=== PATIENT | male | born 1990 | race Caucasian/White ===

== ENCOUNTER 2024-06-02 11:43 | Day surgery (SDC) | payer BC, SELFPAY ==
[2024-06-01 13:47] VITALS: BMI 30.8
[2024-06-02 12:06] VITALS: BP 130/82; PULSE 71; RESP 17; TEMP 36.2; O2SAT 95
[2024-06-02] MEDS: LACTATED RINGERS 1000ML 1,000 ML 25 ML IV (12:16)
--- NOTE | 2024-06-02 12:36 | EXP.ANES.CKL ---
[facility] Disclaimer: The information contained in this section may have been updated after the patient was seen, as this information can be updated by other users. Medical History No significant active problems Vasectomy planned Surgical History History of esophagogastroduodenoscopy (EGD) History of colonoscopy Family History (Updated 06/02/24 @ 12:05 by Yessi Mcclure RN) Grandmother Family history of cancer Grandfather Family history of myocardial infarction Social History Smoking Status: Never smoker alcohol intake: never substance use type: other current occupational status: employed Travel in the last 8 weeks: None household members: significant other housing: house current occupational exposures/hazards: No caffeine: Yes [facility] Anesthesia Checklist Patient Identification Patient Identification: Verbal (Name & ) Structural Data Admitted From: Home Planned Operative Procedure/s: egd Consent for Planned Operative Procedure(s) Verified: Yes NPO Status Verified Time NPO: 00:00 Additional verifications Anesthesia Reactions: No Hx Blood Transfusions: No Blood Transfusion Reaction: No Airway Assessment Mallampati Score:: Class II C-Spine Mobility Assessed: Yes TMJ Mobility Assessed: Yes Dentition: Good Dentition Neurological Assessment Level of Consciousness: Awake, Alert and Appropriate Anesthesia Plan Anesthesia Risk discussed: Yes Anesthesia Plan: Verified ASA Class: II Anesthesia Type: MAC
--- NOTE | 2024-06-02 13:32 | P.HP_ITS ---
History of Present Illness *Admission Date: 06/02/24 *Reason for visit:: Dysphagia *History of present illness: Mr. Bernal is a 34-year-old gentleman with dysphagia and former Schatzki's ring dilated. His last dilation was 2 to 3 years ago in [place]. He is here for diagnostic/therapeutic upper endoscopy with dilation. The examination is deemed medically necessary for EGD. The patient has been seen, interviewed and examined prior to the procedure by both myself and the anesthesia provider. [facility] Disclaimer: The information contained in this section may have been updated after the patient was seen, as this information can be updated by other users. Medical History No significant active problems Vasectomy planned Surgical History History of esophagogastroduodenoscopy (EGD) History of colonoscopy Family History (Updated 06/02/24 @ 12:05 by Yessi Mcclure RN) Grandmother Family history of cancer Grandfather Family history of myocardial infarction Social History Smoking Status: Never smoker alcohol intake: never substance use type: other current occupational status: employed Travel in the last 8 weeks: None household members: significant other housing: house current occupational exposures/hazards: No caffeine: Yes Other Medical History Have you received the Flu Vaccine for this season: No Have you received the Pneumonia Vaccine: No Review of Systems Review of Systems Review of systems (narrative): Negative *Cardiovascular Comments: Negative *Gastrointestinal Comments: Negative *Genitourinary Comments: Negative *Musculoskeletal Comments: Negative *Neurologic Comments: Negative Meds Home Medications and Allergies Home Medications ?Medication ?Instructions ?Recorded ?Confirmed ?Type No Known Home Medications 07/02/19 06/02/24 History New Prescriptions to Start Prescriptions: Allergies Allergy/AdvReac Type Severity Reaction Status Date / Time cefdinir (From Omnicef) Allergy Hives Verified 06/02/24 12:05 cefotaxime (From Claforan) Allergy Hives Verified 06/02/24 12:05 Exam Data for Last 24 hours Vital signs and Labs for Last 24 Hours: Temp Pulse Resp BP Pulse Ox O2 Del Method 97.1 F L 71 17 130/82 95 Room Air 06/02/24 12:06 06/02/24 12:06 06/02/24 12:06 06/02/24 12:06 06/02/24 12:06 06/02/24 12:06 I & O for Last 24 hours: Intake & Output 05/30/24 05/31/24 06/01/24 06/02/24 23:59 23:59 23:59 23:59 Weight 215 lb *Routine HEENT Exam Head: Present normocephalic Eye: Present EOMI and PERRL ENT: Present mucous membranes moist *Routine Neck Exam Neck: Present supple *Routine Respiratory Exam Respiratory: Present CTA bilaterally *Routine Cardiovascular Exam Cardiovascular: Present RRR *Routine Abdominal Exam Abdominal: Present soft and normoactive bowel sounds; Absent tenderness *Routine Rectal Exam Rectal:: deferred *Routine Genitalia Exam Genitalia:: deferred *Routine Extremities Exam Extremities: Absent cyanosis, clubbing or edema *Routine Skin Exam Skin: Present warm; Absent rash *Routine Neurological Exam Neurological: Present alert and oriented X3 Assessment and Plan *Assessment and plan (1) Schatzki's ring: Status: Acute Category: Medical Code(s): K22.2 - Esophageal obstruction (2) Dysphagia: Status: Acute Category: Medical Code(s): R13.10 - Dysphagia, unspecified Plan A/P: 1. Dysphagia with former history of Schatzki's ring is the preprocedural diagnosis. The patient will be anesthetized/sedated using MAC sedation. The patient has been seen and examined. Cardiac and lung assessment prior to the examination is stable. Proceed with planned EGD with dilation
--- NOTE | 2024-06-02 13:34 | P.PCN_ITS ---
[facility] Procedure Note Date: 06/02/24 Time: 13:51 Procedure Note:: Upper Endoscopy Procedure Report: Esophagogastroduodenoscopy with cold biopsies and TTS balloon dilation Endoscopost: Jorge Luis Marin II, MD Referring Physician: None Date of Procedure: June 02, 2024 Equipment: Olympus GIF 190 standard upper endoscope Sedation: MAC sedation Indications: Mr. Bernal is a 34-year-old gentleman with recurrent dysphagia. He does have a former history of a Schatzki's ring. He has had several esophageal dilations and his last was 2-1/2 years ago in [place]. He does have gradually worsening dysphagia and primarily to solid foods such as breads or meats. Occasionally he will have to regurgitate. He has never had a food impaction. He reports no heartburn or reflux. He is not on any medications. Procedure: Prior to the procedure, a history and physical exam was performed, and patient's medications and allergies were reviewed. The risks, benefits and alternatives of the sedation and procedure were discussed with the patient. All questions were answered and informed consent was obtained. The patient was brought to the procedure room. Patient identification and proposed procedure were verified by the physician and the nurse. The patient was placed in a left lateral decubitus position and the scope was passed under direct vision. Throughout the procedure, the patient's blood pressure, pulse, and oxygen saturations were monitored continuously. The upper GI endoscopy was accomplished without difficulty. The patient tolerated the procedure well. Findings: The scope was passed directly into the upper esophagus and advanced to the third portion of the duodenum. The post bulbar duodenum and duodenal bulb were normal with normal mucosa and conniventes. The scope was withdrawn through a normal duodenal bulb and pylorus into the stomach. The antrum, body and fundus of the stomach were grossly normal. Upon retroflexion there was a 2 cm hiatal hernia. The scope was then withdrawn into the esophagus. There was a distal fibrotic Schatzki's ring. The original diameter was 11 to 12 mm and this was dilated up to 20 mm with a TTS hydrostatic balloon. Cold biopsies were taken from the distal and proximal esophagus to rule out eosinophilic esophagitis. The entire esophagus was dilated and there was some cricopharyngeal spasm. The remainder of the esophageal mucosa was normal and there was no corrugation or furrowing. Impression: 1. Schatzki's ring with original diameter 11 to 12 mm dilated to 20 mm with TTS hydrostatic balloon 2. Small 2 cm hiatal hernia Plan: The patient should have clinical improvement with dilation. I would recommend omeprazole for 90 days. A Schatzki's ring is a fibrous shelf of tissue in the lower esophagus where mostly solid foods can get hung up. I did stretch/dilate this maximally. These do have a predilection to recur after a couple of years and this may need to be redilated at some point in the future. There are studies to suggest that acid suppression with acid reflux medications can sometimes reduce recurrence of the ring thus I would continue the omeprazole x 90 days. I will check biopsies to rule out eosinophilic esophagitis.
[2024-06-02 13:40] VITALS: O2SAT 99
[2024-06-02 13:54] VITALS: BP 126/78; PULSE 85; RESP 20; TEMP 36.1; O2SAT 92
[2024-06-02 14:04] VITALS: BP 116/78; PULSE 73; RESP 22; O2SAT 92
[2024-06-02 14:14] VITALS: BP 109/69; PULSE 69; RESP 22; O2SAT 94
[2024-06-02 14:32] VITALS: BP 104/69; PULSE 60; RESP 18; O2SAT 93
== END 2024-06-02 14:24 | disposition home or self-care (01) ==
PROVIDERS: Visit Provider Internal Medicine Gastroenterology
PROC: 0DJ08ZZ Inspection of Upper Intestinal Tract, Via Natural or Artificial Opening Endoscopic (ICD-10-PCS; CPT 43235; principal; 2024-06-02 13:30)
DX: K22.2 Esophageal obstruction (principal); R13.10 Dysphagia, unspecified; K44.9 Diaphragmatic hernia without obstruction or gangrene; J39.2 Other diseases of pharynx
CPT/HCPCS: 43239; 43249; C1726; J7120